=== PATIENT | female | born 1980 | race American Indian/Alaskan Native ===

== ENCOUNTER 2018-10-05 17:13 | Emergency (ER) | payer SELFPAY ==
--- NOTE | 2018-10-05 18:21 | Event Note ---
ED Screening Note Date of service: 10/05/18 Time: 18:18 ED Screening Note: This is a 38 y.o. F. that presents to the ER with right ankle pain s/p slip and fall in [facility]. LMP 09/21/2018 This initial assessment/diagnostic orders/clinical plan/treatment(s) is/are subject to change based on patients health status, clinical progression and re- assessment by fellow clinical providers in the ED. Further treatment and workup at subsequent clinical providers discretion. Patient/guardian urged not to elope from the ED as their condition may be serious if not clinically assessed and managed. Initial orders include: XR right ankle
--- NOTE | 2018-10-05 18:58 | XRay Report ---
RIGHT ANKLE 3 VIEW(S) INDICATION / CLINICAL INFORMATION: lateral ankle pain, s/p fall COMPARISON: None available. FINDINGS: BONES / JOINT(S): No acute fracture or subluxation. No significant arthritis. SOFT TISSUES: No significant abnormality. ADDITIONAL FINDINGS: Radiographs acquired with the patient's sandal still on her foot. Signer Name: Lawson Greenfield MD Signed: 10/05/2018 6:53 PM Workstation Name: [id number]
--- NOTE | 2018-10-05 19:18 | Emergency Department Report ---
ED Extremity Problem HPI - General Chief complaint: Fall Stated complaint: R ANKLE PAIN Time Seen by Provider: 10/05/18 18:18 Source: patient Mode of arrival: Ambulatory Limitations: No Limitations - History of Present Illness Initial comments: Patient is a 38-year-old female presents to the emergency room with complaints of a fall that occurred in [facility] today. She states that she slipped over some slick staff and had an inversion injury of her right ankle. She denies ever injuring before. she states she was ambulatory after happened. She states when she got home it began to cause her some more pain and has been aching. She does not report any numbness or weakness. Denies any past medical history or allergies to medications. Last menstrual cycle September 21. - Related Data Previous Rx's Medication Instructions Recorded Last Taken Type Naproxen [Naprosyn] 500 mg PO BID PRN #20 tablet 10/05/18 Unknown Rx Allergies Allergy/AdvReac Type Severity Reaction Status Date / Time No Known Allergies Allergy Unverified 10/05/18 17:43 ED Review of Systems ROS: Stated complaint: R ANKLE PAIN Other details as noted in HPI Comment: All other systems reviewed and negative ED Past Medical Hx - Past Medical History Previous Medical History?: No - Surgical History Past Surgical History?: No - Social History Smoking Status: Never Smoker Substance Use Type: Alcohol - Medications Home Medications: Home Medications Medication Instructions Recorded Confirmed Last Taken Type Naproxen [Naprosyn] 500 mg PO BID PRN #20 tablet 10/05/18 Unknown Rx ED Physical Exam - General Limitations: No Limitations General appearance: alert, in no apparent distress - Head Head exam: Present: atraumatic, normocephalic - Eye Eye exam: Present: normal appearance - ENT ENT exam: Present: mucous membranes moist - Extremities Exam Extremities exam: Present: other (mild TTP of the right lateral ankle, no obvious edema, no obvious joint laxity, FROM of the right ankle without difficulty, 2+ distal pulses, sensation intact) - Neurological Exam Neurological exam: Present: alert, oriented X3 - Psychiatric Psychiatric exam: Present: normal affect, normal mood - Skin Skin exam: Present: warm, dry, intact ED Course Vital Signs 10/05/18 10/05/18 17:43 21:42 Temperature 99.0 F 98.0 F Pulse Rate 85 80 Respiratory 16 18 Rate Blood Pressure 109/72 Blood Pressure 128/78 [Left] O2 Sat by Pulse 100 100 Oximetry ED Medical Decision Making - Radiology Data Radiology results: report reviewed RIGHT ANKLE 3 VIEW(S) INDICATION / CLINICAL INFORMATION: lateral ankle pain, s/p fall COMPARISON: None available. FINDINGS: BONES / JOINT(S): No acute fracture or subluxation. No significant arthritis. SOFT TISSUES: No significant abnormality. ADDITIONAL FINDINGS: Radiographs acquired with the patient's sandal still on her foot. Signer Name: Lawson Greenfield MD Signed: 10/05/2018 6:53 PM Workstation Name: [id number] Transcribed By: KEVIN Dictated By: Lawson Greenfield MD Electronically Authenticated By: Lawson Greenfield MD Signed Date/Time: 10/05/18 185 - Medical Decision Making Patient is a 38-year-old female presents to the emergency room with complaints of a fall that occurred in [facility] today. She states that she slipped over some slick staff and had an inversion injury of her right ankle. She denies ever injuring before. she states she was ambulatory after happened. She states when she got home it began to cause her some more pain and has been aching. She does not report any numbness or weakness. Denies any past medical history or allergies to medications. Last menstrual cycle September 21. on exam: mild TTP of the right lateral ankle, no obvious edema, no obvious joint laxity, FROM of the right ankle without difficulty, 2+ distal pulses, sensation intact. XR of the right ankle: No significant abnormality. pt placed in ankle stirrup splint. pt given prescription for naproxen. advised to take medication as prescribed as needed. cover ice in a towel and ice the ankle for 15 minutes at a time. Use elevation and rest. May follow up with Dr. Hernandez, orthopedic as needed if symptoms do not improve. Return to the emergency room for any new or worsening symptoms. - Differential Diagnosis strain, sprain, fx, dislocation, tendon/ligament injury, contusion Critical care attestation.: If time is entered above; I have spent that time in minutes in the direct care of this critically ill patient, excluding procedure time. ED Disposition Clinical Impression: Right ankle pain Qualifiers: Chronicity: acute Qualified Code(s): M25.571 - Pain in right ankle and joints of right foot Disposition: DC-01 TO HOME OR SELFCARE Is pt being admited?: No Does the pt Need Aspirin: No Condition: Stable Instructions: Ankle Sprain (ED), Ankle Stirrup Splint (ED), RICE Therapy (ED) Additional Instructions: Take medication as prescribed as needed. cover ice in a towel and ice the ankle for 15 minutes at a time. Use elevation and rest. May follow up with Dr. Hernandez, orthopedic as needed if symptoms do not improve. Return to the emergency room for any new or worsening symptoms. Prescriptions: Naproxen [Naprosyn] 500 mg PO BID PRN #20 tablet PRN Reason: pain Referrals: AMADOU HERNANDEZ MD [Staff Physician] - as needed Time of Disposition: 19:18 Print Language: SPANISH
[2018-10-05 21:44] VITALS: BP 128/78
== END 2018-10-05 21:45 | disposition home or self-care (01) ==
LOC: ED 17:13
DX: M25.571 Pain in right ankle and joints of right foot (principal); W01.198A Fall on same level from slipping, tripping and stumbling with subsequent striking against other object, initial encounter; Y93.89 Activity, other specified; Y92.512 Supermarket, store or market as the place of occurrence of the external cause; Y99.8 Other external cause status